=== PATIENT | female | born 1965 | race Asian ===

== ENCOUNTER 2017-06-14 06:27 | Day surgery (SDC) | payer OTHER ==
[2017-06-14] MEDS ORDERED: SOD CHLORIDE 0.9% 1,000 ML IV (07:00)
[2017-06-14] MEDS ORDERED: CEFAZOLIN 2 GM/50 ML (PMX) 50 ML IVPB (07:00)
[2017-06-14] MEDS ORDERED: PROPOFOL 20 ML (08:47)
[2017-06-14] MEDS ORDERED: CEFAZOLIN 1 GM INJ (08:47)
[2017-06-14] MEDS ORDERED: FENTAnyl 50 MCG/ML VIAL (08:48)
[2017-06-14] MEDS ORDERED: MIDAZOLAM 1 MG/ML 2 ML INJ (08:48)
[2017-06-14] MEDS: BUPIVACAINE 0.25% (MPF) 30 ML INJ (09:11)
[2017-06-14] MEDS ORDERED: DEXAMETHASONE 4 MG/ML 1 ML INJ (09:15)
[2017-06-14] MEDS ORDERED: METOCLOPRAMIDE 10 MG INJ (09:15)
[2017-06-14] MEDS ORDERED: ONDANSETRON 4 MG INJ (09:15)
[2017-06-14] MEDS ORDERED: KETOROLAC 30 MG INJ (09:15)
[2017-06-14] MEDS: IBUPROFEN 800 MG TAB PO (10:25)
[2017-06-14] MEDS ORDERED: IBUPROFEN 800 MG TAB PO (10:30)
== END 2017-06-14 11:12 | disposition home or self-care (01) ==
LOC: SDS 06:27
DX: L91.8 Other hypertrophic disorders of the skin (principal); I10 Essential (primary) hypertension
CPT/HCPCS: 14020; 88307

== ENCOUNTER 2018-10-13 12:02 | Emergency (ER) | payer OTHER ==
[2018-10-13 13:11] LABS: ADD MAN DIFF? NO
[2018-10-13 13:18] LABS: BASOPHILS % 0.5 % (0.0-2.0); EOSINOPHILS # 0.4 10^3/ul (0.0-0.5); HEMATOCRIT 48.2 % (37.0-47.0); HEMOGLOBIN 16.1 g/dl (12.0-16.0); LYMPHOCYTES # 2.7 10^3/ul (0.8-2.9); LYMPHOCYTES % 35.4 % (15.0-51.0); MEAN CORPUSCULAR HEMOGLOBIN 30.3 pg (29.0-33.0); MEAN CORPUSCULAR HGB CONC 33.4 g/dl (32.0-37.0); MEAN CORPUSCULAR VOLUME 90.6 fl (82.0-101.0); MEAN PLATELET VOLUME 8.5 fl (7.4-10.4); MONOCYTE # 0.6 10^3/ul (0.3-0.9); MONOCYTES % 7.8 % (0.0-11.0); NEUTROPHIL # 3.9 10^3/ul (1.6-7.5); PLATELET COUNT 327 10^3/UL (140-415); RED BLOOD COUNT 5.32 10^6/ul (4.20-5.40); RED CELL DISTRIBUTION WIDTH 12.9 % (11.5-14.5)
[2018-10-13 13:18] LABS: WHITE BLOOD COUNT 7.6 10^3/ul (4.8-10.8)
[2018-10-13 13:23] LABS: ADD UMIC YES; UR ASCORBIC ACID 20 mg/dL (NEGATIVE); UR BILIRUBIN (Dip) NEGATIVE (NEGATIVE); UR BLOOD (Dip) 1+ mg/dL (NEGATIVE); UR CLARITY CLEAR (CLEAR); UR COLOR YELLOW (YELLOW); UR GLUCOSE (Dip) NEGATIVE (NEGATIVE); UR KETONES (Dip) NEGATIVE (NEGATIVE); UR LEUKOCYTE ESTERASE (Dip) NEGATIVE Leu/ul (NEGATIVE); UR NITRITE (Dip) NEGATIVE (NEGATIVE); UR RBC 7 /HPF (0-5); UR SPECIFIC GRAVITY (Dip) 1.016 (1.003-1.030); UR SQUAMOUS EPITHELIAL CELL FEW /HPF (FEW); UR TOTAL PROTEIN (Dip) 2+ mg/dl (NEGATIVE); UR UROBILINOGEN (Dip) NEGATIVE (NEGATIVE); UR WBC 1 /HPF (0-5)
[2018-10-13 13:43] LABS: ALANINE AMINOTRANSFERASE 46 IU/L (13-69); ALBUMIN 4.1 g/dl (3.3-4.9); ALKALINE PHOSPHATASE 58 IU/L (42-121); ANION GAP 8 (5-13); ASPARTATE AMINO TRANSFERASE 38 IU/L (15-46); BILIRUBIN,INDIRECT 0.4 mg/dl (0-1.1); BILIRUBIN,TOTAL 0.4 mg/dl (0.2-1.3); BLOOD UREA NITROGEN 17 mg/dl (7-20); CALCIUM 9.4 mg/dl (8.4-10.2); CARBON DIOXIDE 30 mmol/L (21-31); CHLORIDE 105 mmol/L (97-110); CREATININE 0.79 mg/dl (0.44-1.00); Estimated GFR > 60 mL/min (>60); GLUCOSE 113 mg/dl (70-220); POTASSIUM 4.5 mmol/L (3.5-5.1); SODIUM 143 mmol/L (135-144); TOTAL PROTEIN 8.2 g/dl (6.1-8.1)
[2018-10-13] MEDS: KETOROLAC 60 MG INJ IM (16:24)
== END 2018-10-13 16:36 | disposition home or self-care (01) ==
LOC: E/R 16:36
DX: K38.8 Other specified diseases of appendix (principal); I10 Essential (primary) hypertension; Z85.038 Personal history of other malignant neoplasm of large intestine; Z87.891 Personal history of nicotine dependence
CPT/HCPCS: 36415; 74176; 80053; 81001; 85025; 96372; 99285-25

== ENCOUNTER 2018-11-27 09:02 | Emergency (ER) | payer OTHER ==
[2018-11-27 10:11] LABS: ADD MAN DIFF? NO
[2018-11-27 10:12] LABS: WHITE BLOOD COUNT 8.9 10^3/ul (4.8-10.8)
[2018-11-27 10:12] LABS: BASOPHIL # 0.1 10^3/ul (0.0-0.1); BASOPHILS % 0.6 % (0.0-2.0); EOSINOPHILS # 0.2 10^3/ul (0.0-0.5); EOSINOPHILS % 1.9 % (0.0-7.0); HEMATOCRIT 51.2 % (37.0-47.0); LYMPHOCYTES # 3.3 10^3/ul (0.8-2.9); LYMPHOCYTES % 36.9 % (15.0-51.0); MEAN CORPUSCULAR HEMOGLOBIN 30.4 pg (29.0-33.0); MEAN CORPUSCULAR HGB CONC 33.2 g/dl (32.0-37.0); MEAN CORPUSCULAR VOLUME 91.4 fl (82.0-101.0); MEAN PLATELET VOLUME 8.2 fl (7.4-10.4); MONOCYTE # 0.6 10^3/ul (0.3-0.9); MONOCYTES % 6.5 % (0.0-11.0); NEUTROPHIL # 4.8 10^3/ul (1.6-7.5); NEUTROPHILS % 53.5 % (39.0-77.0); PLATELET COUNT 334 10^3/UL (140-415); RED CELL DISTRIBUTION WIDTH 13.2 % (11.5-14.5)
[2018-11-27 10:35] LABS: ALANINE AMINOTRANSFERASE 57 IU/L (13-69); ALBUMIN 4.1 g/dl (3.3-4.9); ALKALINE PHOSPHATASE 63 IU/L (42-121); ANION GAP 8 (5-13); ASPARTATE AMINO TRANSFERASE 35 IU/L (15-46); BILIRUBIN,INDIRECT 0.7 mg/dl (0-1.1); BILIRUBIN,TOTAL 0.7 mg/dl (0.2-1.3); BLOOD UREA NITROGEN 19 mg/dl (7-20); CALCIUM 9.5 mg/dl (8.4-10.2); CARBON DIOXIDE 31 mmol/L (21-31); CHLORIDE 103 mmol/L (97-110); CREATININE 0.89 mg/dl (0.44-1.00); Estimated GFR > 60 mL/min (>60); GLUCOSE 132 mg/dl (70-220); LIPASE 287 U/L (23-300); SODIUM 142 mmol/L (135-144); TOTAL PROTEIN 8.2 g/dl (6.1-8.1)
[2018-11-27 10:47] LABS: TROPONIN-I < 0.012 ng/ml (0.000-0.120)
== END 2018-11-27 12:41 | disposition home or self-care (01) ==
LOC: E/R 09:02
DX: I10 Essential (primary) hypertension (principal); Z79.84 Long term (current) use of oral hypoglycemic drugs; Z85.038 Personal history of other malignant neoplasm of large intestine; Z87.891 Personal history of nicotine dependence
CPT/HCPCS: 71045; 80053; 83690; 84484; 85025; 93005; 99284-25